=== PATIENT | male | born 1940 | race Caucasian/White ===

== ENCOUNTER 2017-12-25 09:14 | Emergency (ER) | payer MEDICARE, OTHER ==
[~2017-12-25] VITALS: Ht 180.3 cm; Wt 100.0 kg
[~2017-12-25 09:14] MED LIST: ASPI-1053 PO; LOSA50TA3 PO
[2017-12-25 09:20] VITALS: BP 157/104
== END 2017-12-25 10:22 | disposition home or self-care (01) ==
LOC: ER 09:15
DX: R07.81 Pleurodynia (principal); I10 Essential (primary) hypertension; Z95.1 Presence of aortocoronary bypass graft; Z88.8 Allergy status to other drugs, medicaments and biological substances; Z79.82 Long term (current) use of aspirin; Z79.899 Other long term (current) drug therapy; W01.0XXA Fall on same level from slipping, tripping and stumbling without subsequent striking against object, initial encounter; Y93.01 Activity, walking, marching and hiking; Y92.89 Other specified places as the place of occurrence of the external cause; Y99.8 Other external cause status
CPT/HCPCS: 71046; 99284

== ENCOUNTER 2022-06-10 12:30 | Emergency (ER) | payer MEDICARE, OTHER ==
[~2022-06-10] VITALS: Ht 182.9 cm; Wt 95.0 kg
--- NOTE | 2022-06-10 13:00 | NUR ---
Dr. Cardona at bedside.
[2022-06-10] MEDS ORDERED: acetaminophen 325mg tablet PO ONE (13:30)
[2022-06-10] MEDS ORDERED: losartan 50mg tablet PO SCH (13:30)
[2022-06-10] MEDS ORDERED: LIDOcaine 5% patch TP STA (13:40)
[2022-06-10 14:45] VITALS: BP 168/98
--- NOTE | 2022-06-10 15:00 | NUR ---
pt unable to bear full weight on leg. attempted to ambulate with cane, but still unable. pt then attempted with walker and was able to ambulate approx 50 feet to and from the restroom. pt states he has a walker at home that he can use.
== END 2022-06-10 15:25 | disposition home or self-care (01) ==
LOC: ER 12:30
DX: M25.551 Pain in right hip (principal); I11.9 Hypertensive heart disease without heart failure; Z98.890 Other specified postprocedural states; Z88.8 Allergy status to other drugs, medicaments and biological substances; Z79.899 Other long term (current) drug therapy; W19.XXXA Unspecified fall, initial encounter; Y93.89 Activity, other specified; Y92.89 Other specified places as the place of occurrence of the external cause; Y99.8 Other external cause status
CPT/HCPCS: 72170; 73551; 99284